=== PATIENT | male | born 1950 | race Caucasian/White ===

== ENCOUNTER 2017-04-08 15:00 | Inpatient (IN) | payer BC ==
[2017-04-14 16:40] VITALS: BMI 33.7
[2017-04-25] MEDS ORDERED: ceFAZolin IN SWFI 2 GM/20 ML SYRINGE IVP ONE (05:00)
[2017-04-25] MEDS ORDERED: ACETAMINOPHEN TAB 500 MG TAB PO ONE (05:00)
[2017-04-25] MEDS ORDERED: MELOXICAM 7.5 MG TAB PO ONE (05:00)
[2017-04-25] MEDS ORDERED: TRANEXAMIC ACID 1,000 MG in SODIUM CHLORIDE 0.9% 50 ML IVPB ONE (05:00)
[2017-04-25] MEDS ORDERED: ONDANSETRON 4 MG/2 ML VIAL IVP ONE (05:11)
[2017-04-25] MEDS ORDERED: HYDROmorphone 0.5 MG/0.5 ML SYRINGE IVP PRN ×4 (05:11→14:12)
[2017-04-25] MEDS ORDERED: DEXAMETHASONE SOD PHOSPHATE 10 MG/ML 1 ML VIAL IV ONE (05:11)
[2017-04-25] MEDS ORDERED: ROPIVACAINE 246.25 MG, EPINEPHrine 0.5 MG, KETOROLAC 30 MG, cloNIDine HCL/PF 80 MCG, WA... MISCELLANE ONE ×5 (11:35)
[2017-04-25] MEDS ORDERED: LIDOCAINE 1% 20 ML VIAL (10MG/ML) FOR IV START INTRADERMA ONE (13:04)
[2017-04-25] MEDS ORDERED: LACTATED RINGERS 1,000 ML IV ONE ×3 (13:04→16:11)
[2017-04-25] MEDS ORDERED: ONDANSETRON 4 MG/2 ML VIAL IVP PRN (14:12)
[2017-04-25] MEDS ORDERED: MAGNESIUM HYDROXIDE 2,400 MG/10 ML CUP PO PRN (14:12)
[2017-04-25] MEDS ORDERED: NALOXONE 0.4 MG/ML 1 ML VIAL IV PRN (14:12)
[2017-04-25] MEDS ORDERED: hydrOXYzine PAMOATE 25 MG CAP PO PRN (14:12)
[2017-04-25] MEDS ORDERED: HYDROcodone/APAP 5-325MG 1 EACH TAB PO PRN ×2 (14:12)
[2017-04-25] MEDS ORDERED: DIAZEPAM 5 MG TAB PO PRN ×2 (14:12)
[2017-04-25] MEDS ORDERED: ceFAZolin 3,000 MG in SODIUM CHLORIDE 0.9% IRRIGATIO 3,000 ML IRRIGATION ONE (14:21)
[2017-04-25] MEDS ORDERED: SODIUM CHLORIDE 0.9% IRRIG 1,000 ML BTL IRRIGATION ONE (14:21)
[2017-04-25] MEDS ORDERED: HEPARIN SODIUM,PORCINE 10,000 UNIT/ML 1 ML VIAL ONE (14:21)
--- NOTE | 2017-04-25 16:12 | P.OP ---
Date of Procedure: 04/25/17 Preoperative Diagnosis: Severe osteoarthritis right hip Postoperative Diagnosis: Severe osteoarthritis right hip Procedure(s) Performed: Right total hip arthroplasty with a direct anterior approach Implants: Andre and nephew Polarstem size 6 standard Andre & Nephew R3, 3 hole acetabular shell, 54 mm Andre [employer] Nephew reflection 6.5 mm cancellus screw, 20 mm 2 Andre [employer] Nephew R3, XLPE 20 acetabular liner Andre [employer] Nephew Oxinium femoral head 36 m, +4 All components were press-fit. The articulation is Oxinium on polyethylene. Anesthesia: spinal Surgeon: Miguel Alvarado [employer] Driver #1: Jesusita Rhodes Estimated Blood Loss (ml): 250 (115 mL returned with Cell Saver) Pathology: other (Femoral head) Condition: stable Disposition: PACU Indications for Procedure: After failure of conservative treatment we discussed the surgical and nonsurgical treatment options at length. Patient wishes to proceed with a total hip arthroplasty with a direct anterior approach. Complications specific to this procedure were discussed at length, including but not limited to infection, leg length discrepancy, dislocation, and nerve injury. Patient is aware of all these complications and informed consent was obtained Operative Findings: The operative findings are consistent with severe osteoarthritis of the right hip Description of Procedure: Patient was seen and evaluated in the preoperative area, consent was reviewed, and the surgical site was marked with a skin marker. Patient was then brought to the operating room and given prophylactic antibiotics intravenously. 1 g of Tranexamic acid was also given. A spinal anesthetic was administered by the anesthesia department. The patient was then placed on the [place] table with the bony prominences well-padded. The hip area was then prepped and draped in usual sterile fashion. A universal timeout was then performed, which confirmed the patient's name, surgical site, ALLERGIES, and procedure being performed. Next the incision site was located at 1 cm distal and 1 cm lateral to the anterior superior iliac spine. The skin and subcutaneous tissues were sharply incised. Incision was carefully dissected down to the fascia overlying the tensor fascia jackie muscle. This fascia was then incised in line with the incision. Next, using blunt finger dissection, the tensor fascia jackie muscle was dissected off its investing fascia. The muscle was then carefully retracted laterally with a cobra retractor over the lateral neck of the femur. Next, the circumflex vessels were identified and cauterized using the AquaMantis device. The anterior hip capsule was then exposed. The capsule was then opened and an inverted T fashion. Cobra retractors were then placed intracapsularly. The proximal femur was then visualized. The femoral neck was then osteotomized appropriate level above the lesser trochanter. Small amount of traction was placed with the [place] table. A small wedge of bone was then removed from the remaining femoral head. Next, using a corkscrew femoral head was easily removed from the acetabulum. On gross visual inspection, the femoral head had complete loss of articular cartilage in multiple periarticular osteophytes. Attention was then turned to the acetabulum. the acetabulum was exposed and any remaining labrum was excised. Sequential reaming of the acetabulum was performed using fluoroscopic guidance. When the appropriate size was reached, a trial was then placed. The position and fit of the trial was checked with fluoroscopy. The trial was then removed. Then, using fluoroscopic guidance, the final implant was impacted at 20 of anteversion and 40 of abduction, and fully seated in the acetabulum. 2 screws were then placed in the acetabulum. Again fluoroscopy was used to check position of the screws. Next, the liner was then impacted, with a 20 elevated liner located in the anterior superior quadrant. Component locking was confirmed. Attention was then directed to the femur. With the aid of the [place] table, the femur was externally rotated to approximately 130, extended, and abducted under the opposite leg. A side hook was then placed under the proximal femur, and the side hook elevator was used to elevate the proximal femur. Retractors were then placed. A capsular release was performed, as well as a release of the conjoined tendon, which afforded excellent visualization of the proximal femur. Next, a box osteotome was used to lateralize the proximal femur. A hand tapper was then used to locate the femoral canal. Sequential broaching was then performed with appropriate size which afforded excellent fixation in the proximal femur. A trial was then placed with appropriate head and neck, and the hip was gently reduced with the aid of the [place] table. Fluoroscopy was then used to check position of the components, as well as to ensure equal leg lengths. The hip was then gently dislocated and the trials were then removed. Final implants were then impacted and the hip was again reduced. Final fluoroscopic x-rays confirmed that the components were in anatomic position, as well as equal leg lengths. The hip was also taken through range of motion, and found to be stable. The hip was then copiously irrigated with antibiotic solution with pulsatile lavage. The hip was then irrigated with Irrisept solution. The soft tissues were then injected with a ropivacaine solution, which consisted of 246.25 mg of ropivacaine, 0.5 mg of epinephrine, 30 mg of Toradol, 80 g of clonidine, and 48.45 mL of sterile water, for a total of 100 mL of fluid injected. A second dose of 1 g of Tranexamic acid was also given. the fascia was then closed with 2-0 strata fix suture. The subcutaneous tissue was closed with 3-0 Vicryl. The subcuticular tissue was closed with 3-0 strata fix suture. The skin was then closed with Dermabond glue and a sterile silver dressing. The patient was then transferred to the recovery room in stable condition. The employment assistant MARANDA Sanchez was required due to the complexity of surgery, and the need for skilled department assistant for positioning, draping, exposure, retraction, and closure of the wound.
[2017-04-25 16:33] VITALS: RESP 16
--- NOTE | 2017-04-25 16:59 | XR ---
Fluoroscopy History: RIGHT ANTERIOR HIP REPLACEMENT 59 seconds of fluoroscopic time and 2 films are submitted for RIGHT ANTERIOR HIP REPLACEMENT .
[2017-04-25] MEDS: LACTATED RINGERS 1,000 ML IV SCH (17:29)
[2017-04-25] MEDS: ASPIRIN 325 MG TAB PO SCH (20:12)
[2017-04-25] MEDS ORDERED: SENNOSIDES-DOCUSATE SODIUM 1 EACH TAB PO SCH (21:00)
[2017-04-25] MEDS: ceFAZolin IN SWFI 2 GM/20 ML SYRINGE IVP SCH (23:58)
[2017-04-26] MEDS: SODIUM CHLORIDE 0.9% 1,000 ML IV SCH ×2 (01:23→08:55)
[2017-04-26 02:48] VITALS: PULSE 90
[2017-04-26] MEDS: LACTATED RINGERS 1,000 ML IV SCH (05:50)
[2017-04-26 07:15] LABS: Basophils % (A) 0 %; Eosinophils % (A) 0 %; HCT 37.4 % (39.0-53.0); Lymphocytes % (A) 6 %; MCH 29.2 pg (25.0-35.0); MCHC 32.7 g/dL (31.0-37.0); MCV 89.1 fL (80.0-100.0); Mean Platelet Volume 7.2; Monocytes # (A) 1.3 k/uL (0-1.0); Monocytes % (A) 7 %; Neutrophils # (A) 16.3 k/uL (1.3-7.7); Neutrophils % (A) 87 %; Platelet Count 331 k/uL (150-450); RBC 4.19 m/uL (4.30-5.90); RDW 13.4 % (11.5-15.5); WBC 18.8 k/uL (3.8-10.6)
[2017-04-26 07:17] VITALS: BP 145/66; TEMP 98.4
[2017-04-26 07:20] LABS: HGB 12.2 gm/dL (13.0-17.5)
[2017-04-26] MEDS: ASPIRIN 325 MG TAB PO SCH (08:56)
[2017-04-26] MEDS ORDERED: MELOXICAM 7.5 MG TAB PO SCH (09:00)
[2017-04-26] MEDS: ceFAZolin IN SWFI 2 GM/20 ML SYRINGE IVP SCH (09:01)
--- NOTE | 2017-04-26 09:53 | P.DS ---
Providers Date of admission: 04/25/17 12:47 Expected date of discharge: 04/26/17 Attending physician: Miguel Alvarado Consults: 04/25/17 14:12 Consult Physician Routine Consulting Provider: Ellen Fernando Consult Reason/Comments: medical management Do you want consulting provider notified?: Yes Primary care physician: Ayush Maynard - Discharge Diagnosis(es) (1) S/P total hip arthroplasty Current Visit: Yes Status: Acute (2) Primary osteoarthritis of right hip Current Visit: Yes Status: Acute Hospital Course: This is a 66-year-old male with known history of degenerative arthritis of the right hip. The patient presents for evaluation. After discussion and consideration patient elects to proceed with total hip arthroplasty. The patient is seen preoperatively by Dr. Alvarado and cleared for surgery. Patient is admitted to [facility] on 04/25/2017 for total hip arthroplasty. The procedures performed without complication or sequelae. The patient is doing well postoperatively. Labs and vital signs are stable on day of discharge. On day of discharge patient's hip incision is healing well. Dressing is clean, dry and intact. There is minimal soft tissue swelling to the hip and thigh. Patient has full foot and ankle motion without difficulty or pain. Neurovascular status to the right lower extremity is intact. Patient is discharged arm in good condition. Please see med rec for accurate list of home medications. Plan - Discharge Summary Discharge Rx Participant: Yes New Discharge Prescriptions: New Aspirin 325 mg PO BID #60 tab HYDROcodone/APAP 5-325MG [[place] 5-325] 1 - 2 tab PO Q4-6H PRN #90 tab PRN Reason: Pain Sennosides [Senokot] 1 tab PO BID #60 tablet No Action Losartan/Hydrochlorothiazide [Losartan-Hctz 100-25 mg Tab] 1 tab PO HS Potassium Chloride [Klor-Con 10] 10 meq PO DAILY Acetaminophen [Tylenol Extra Strength] 1,000 mg PO Q6H PRN PRN Reason: Pain Discharge Medication List Losartan/Hydrochlorothiazide [Losartan-Hctz 100-25 mg Tab] 1 tab PO HS 01/28/16 [History] Acetaminophen [Tylenol Extra Strength] 1,000 mg PO Q6H PRN 04/14/17 [History] Potassium Chloride [Klor-Con 10] 10 meq PO DAILY 04/14/17 [History] Aspirin 325 mg PO BID #60 tab 04/26/17 [Rx] HYDROcodone/APAP 5-325MG [[place] 5-325] 1 - 2 tab PO Q4-6H PRN #90 tab 04/26/17 [ Rx] Sennosides [Senokot] 1 tab PO BID #60 tablet 04/26/17 [Rx] Follow up Appointment(s)/Referral(s): Miguel Alvarado DO [Doctor of Osteopathic Medicine] - 2 Weeks Activity/Diet/Wound Care/Special Instructions: Weightbearing as tolerated with walker Leave dressing intact. Dressing may be removed by home care nurse in 7 days, . May shower with dressing on. Follow-up with [facility] in 2 weeks, please call with any questions or concerns [phone]
== END 2017-04-26 14:31 | disposition home health service (06) | DRG 470 ==
LOC: 2ORMAIN 04-25 12:47 → 3SUR 04-25 16:46
PROVIDERS: ADMIT Orthopaedic Surgery; ATTEND Orthopaedic Surgery
PROC: 0SR906A Replacement of Right Hip Joint with Oxidized Zirconium on Polyethylene Synthetic Substitute, Uncemented, Open Approach (ICD-10-PCS; principal; 2017-04-25 14:50)
DX: M16.11 Unilateral primary osteoarthritis, right hip (principal); E78.2 Mixed hyperlipidemia; I10 Essential (primary) hypertension; Z79.899 Other long term (current) drug therapy; Z87.891 Personal history of nicotine dependence
CPT/HCPCS: 73501; 85025; 86850; 86891; 86900; 86901; 88300

== ENCOUNTER → 2017-04-13 | Outpatient (CLI) | payer BC ==
[2017-04-13 12:18] LABS: Appearance,Urine Clear (Clear); Bilirubin,Urine Negative (Negative); Blood,Urine Negative (Negative); Color,Urine Light Yellow; Glucose,Urine (UA) Negative (Negative); Ketones,Urine Negative (Negative); Leukocyte Esterase,Urine Negative (Negative); Nitrite,Urine Negative (Negative); Protein,Urine Negative (Negative); Urobilinogen,Urine <2.0 mg/dL (<2.0)
[2017-04-13 12:20] LABS: INR 1.1 (<1.2); Partial Thromboplastin Time 23.7 sec (22.0-30.0); Prothrombin Time 10.3 sec (9.0-12.0)
[2017-04-13 12:29] LABS: ALT 42 U/L (21-72); AST 23 U/L (17-59); Alkaline Phosphatase 40 U/L (38-126); Anion Gap 7 mmol/L; Blood Urea Nitrogen 17 mg/dL (9-20); Calcium 9.7 mg/dL (8.4-10.2); Carbon Dioxide 33 mmol/L (22-30); Chloride 100 mmol/L (98-107); Glucose 120 mg/dL (74-99); Potassium 4.8 mmol/L (3.5-5.1); Sodium 140 mmol/L (137-145); Total Bilirubin 0.5 mg/dL (0.2-1.3); Total Protein 6.6 g/dL (6.3-8.2)
[2017-04-13 12:50] LABS: HGB 15.5 gm/dL (13.0-17.5); MCH 29.5 pg (25.0-35.0); MCHC 31.6 g/dL (31.0-37.0); MCV 93.5 fL (80.0-100.0); Mean Platelet Volume 7.8; Platelet Count 285 k/uL (150-450); RBC 5.24 m/uL (4.30-5.90); RDW 15.1 % (11.5-15.5); WBC 5.2 k/uL (3.8-10.6)
== END | disposition home or self-care (01) ==
LOC: LABPAT 11:39
PROVIDERS: ATTEND Orthopaedic Surgery
DX: Z01.812 Encounter for preprocedural laboratory examination (principal)
CPT/HCPCS: 36415; 80053; 81003; 85027; 85610; 85730; 86850; 86900; 86901; 87070

== ENCOUNTER 2021-12-08 16:57 | Emergency (ER) | payer MEDICARE, BC ==
[2021-12-08 17:03] VITALS: RESP 18; TEMP 98
[2021-12-08] MEDS ORDERED: DIPH,PERTUS(ACELL)TETVAC-LF 0.5 ML VIAL IM ONE (17:18)
--- NOTE | 2021-12-08 17:21 | ED ---
General Adult HPI <Marlene Mcdonald - Last Filed: 12/08/21 18:32> - General Source: EMS Mode of arrival: EMS Limitations: no limitations <Horace Flores - Last Filed: 12/08/21 18:36> - General Chief complaint: Fall Stated complaint: fall Time Seen by Provider: 12/08/21 17:01 - History of Present Illness Initial comments: Dictation was produced using [employer] dictation software. please excuse any grammatical, word or spelling errors. Chief Complaint: 71-year-old male presents to emergency Department with head injury History of Present Illness: 71-year-old male who is brought in after head injury by EMS. Patient was paralyzed in his driveway he was wearing slippery footing. He slipped and landed backwards. He struck the back of his head. Patient's only complaint is posterior head pain. Denies any loss of consciousness. Patient does not take any anticoagulation medications. The ROS documented in this emergency department record has been reviewed and confirmed by me. Those systems with pertinent positive or negative responses have been documented in the HPI. All other systems are other negative and/or noncontributory. PHYSICAL EXAM: General Impression: Alert and oriented x3, not in acute distress HEENT: 2 cm laceration to the occiput, extra-ocular movements intact, pupils equal and reactive to light bilaterally, mucous membranes moist. Cardiovascular: Heart regular rate and rhythm Chest: Able to complete full sentences, no retractions, no tachypnea Musculoskeletal: Pulses present and equal in all extremities, no peripheral edema Motor: no focal deficits noted Neurological: CN II-XII grossly intact, no focal motor or sensory deficits noted Skin: Intact with no visualized rashes Psych: Normal affect and mood ED course: 71-year-old male presents emergency Department with scalp laceration after slip and fall on arrival are within acceptable limits. Computed tomography scan of the head and C-spine shows no acute processes. Laceration repaired with sravani. Laceration repair performed by Marlene Mcdonald, nurse practitioner. Patient discharge. (Horace Flores) - Related Data Home Medications Medication Instructions Recorded Confirmed Losartan/Hydrochlorothiazide 1 tab PO HS 01/28/16 04/25/17 [Losartan-Hctz 100-25 mg Tab] Acetaminophen [Tylenol Extra 1,000 mg PO Q6H PRN 04/14/17 04/25/17 Strength] Potassium Chloride [Klor-Con 10] 10 meq PO DAILY 04/14/17 04/25/17 Previous Rx's Medication Instructions Recorded Aspirin 325 mg PO BID #60 tab 04/26/17 HYDROcodone/APAP 5-325MG [[place] 1 - 2 tab PO Q4-6H PRN #90 tab 04/26/17 5-325] Sennosides [Senokot] 1 tab PO BID #60 tablet 04/26/17 Allergies Allergy/AdvReac Type Severity Reaction Status Date / Time No Known Allergies Allergy Verified 04/25/17 14:23 Review of Systems ROS Other: All systems not noted in ROS Statement are negative. <Marlene Mcdonald - Last Filed: 12/08/21 18:32> ROS Other: All systems not noted in ROS Statement are negative. <Horace Flores - Last Filed: 12/08/21 18:36> ROS Statement: Those systems with pertinent positive or pertinent negative responses have been documented in the HPI. Past Medical History Past Medical History: Hypertension History of Any Multi-Drug Resistant Organisms: None Reported Past Surgical History: Back Surgery Additional Past Surgical History / Comment(s): THORACIC SURGERY-T6, COLONOSCOPY, total right hip anterior Past Anesthesia/Blood Transfusion Reactions: No Reported Reaction Past Psychological History: No Psychological Hx Reported Smoking Status: Former smoker Past Alcohol Use History: Rare Past Drug Use History: None Reported - Past Family History Mother Family Medical History: No Reported History <Horace Flores - Last Filed: 12/08/21 18:36> General Exam Limitations: no limitations <Horace Flores - Last Filed: 12/08/21 18:36> Course Vital Signs 12/08/21 16:57 Temperature 98.0 F Pulse Rate 66 Respiratory 18 Rate Blood Pressure 141/79 O2 Sat by Pulse 96 Oximetry Procedures - Laceration Laceration #1 Consent Obtained: verbal consent Indication: laceration Site: scalp Size (cm): 4 Description: linear Depth: simple, single layer Anesthetic Used: lidocaine 1% Anesthesia Technique: local infiltration Pre-repair: wound explored, irrigated extensively Type of Sutures: other ([place]) Number of Sutures: 9 (sravani) Patient Tolerated Procedure: well, no complications <Marlene Mcdonald - Last Filed: 12/08/21 18:32> Disposition <Marlene Mcdonald - Last Filed: 12/08/21 18:32> Is patient prescribed a controlled substance at d/c from ED?: No Time of Disposition: 18:08 <Horace Flores - Last Filed: 12/08/21 18:36> Clinical Impression: Scalp laceration Disposition: HOME SELF-CARE Condition: Good Instructions (If sedation given, give patient instructions): Laceration (ED), Fall Prevention for Older Adults (ED) Additional Instructions: Staple removal in 10 days Referrals: Ayush Maynard MD [Primary Care Provider] - 1-2 days
--- NOTE | 2021-12-08 17:54 | CT ---
EXAMINATION TYPE: CT brain navine wo con DATE OF EXAM: 12/08/2021 COMPARISON: None HISTORY: fell off ladder CT DLP: 1618.2 mGycm Automated exposure control for dose reduction was used. Images of the brain and cervical spine obtained with no contrast. Ventricles and sulci appear normal. There is no mass effect or midline shift. No sign of intracranial hemorrhage. There is occipital scalp soft tissue swelling. Calvarium is intact. Skull base is intact . There is normal aeration of the mastoid sinuses. The cervical vertebra show normal alignment. There is mild disc space narrowing C4-C7 with spurring o f the endplates. There is hypertrophic multilevel cervical facet arthropathy. No subluxation. No frac ture seen. Prevertebral soft tissues are intact. There is a lucency in the posterior aspect of the SV C 5 and C6 vertebral bodies that could relate to hemangiomas. IMPRESSION: Negative CT scan of the brain. Negative CT scan of the cervical spine. Spondylotic changes. No fractu re.
[2021-12-08] MEDS ORDERED: LIDOCAINE 1%-EPI 1:100,000 20 ML VIAL SQ STA (18:01)
[2021-12-08] MEDS ORDERED: LIDOCAINE 1% INJ 10MG/ML (20 ML MDV) SQ ONE (18:08)
[2021-12-08 19:05] VITALS: BP 137/81; PULSE 62
== END 2021-12-08 19:05 | disposition home or self-care (01) ==
LOC: EC 16:57
DX: S01.01XA Laceration without foreign body of scalp, initial encounter (principal); I10 Essential (primary) hypertension; Z87.891 Personal history of nicotine dependence; Z23 Encounter for immunization; Z79.899 Other long term (current) drug therapy; W01.0XXA Fall on same level from slipping, tripping and stumbling without subsequent striking against object, initial encounter
CPT/HCPCS: 72125; 70450; 90715; 99284; 12002; 90471; J2001